=== PATIENT | female | born 1965 | race African-American/Black ===

== ENCOUNTER 2019-12-23 08:22 | Emergency (ER) | payer SELFPAY ==
[2019-12-23 08:28] VITALS: BP 147/63
--- NOTE | 2019-12-23 10:22 | Cat Scan Report ---
CT head without contrast INDICATION : Headache x 3 weeks, hx of CVA. TECHNIQUE: Axial imaging performed from the skull apex through the skull base without the use of con trast. All CT scans at this location are performed using CT dose reduction for ALARA by means of aut omated exposure control. COMPARISON: CT head from 11/02/2013 FINDINGS: Parenchyma: No acute intracranial hemorrhage or parenchymal abnormality. Ventricles: Ventricles are normal in size and appear symmetric. Soft tissues: Soft tissues including the orbits appear normal. Bones: No acute osseous abnormality. Sinuses: Sinuses and mastoid air cells are clear. IMPRESSION: No acute abnormality. Signer Name: Angel Alarcon MD Signed: 12/23/2019 10:18 AM Workstation Name: [id number]
[2019-12-23] MEDS ORDERED: KETOROLAC 30 MG/1 ML INJ IM ONE (12:22)
[2019-12-23] MEDS ORDERED: ONDANSETRON 4 MG ODT TAB PO ONE (12:23)
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
== END 2019-12-23 13:33 | disposition home or self-care (01) ==
LOC: ED 08:22
DX: G43.909 Migraine, unspecified, not intractable, without status migrainosus (principal); I10 Essential (primary) hypertension; E11.9 Type 2 diabetes mellitus without complications; Z86.73 Personal history of transient ischemic attack (TIA), and cerebral infarction without residual deficits; Z79.899 Other long term (current) drug therapy
CPT/HCPCS: 70450; 96372; 99283; J1885; Q0162

== ENCOUNTER 2021-11-04 09:04 | Emergency (ER) | payer SELFPAY ==
[2021-11-04 09:07] VITALS: BP 120/96
[2021-11-04] MEDS ORDERED: IBUPROFEN 800 MG TAB PO STA (10:49)
[2021-11-04] MEDS ORDERED: ACETAMINOPHEN 325 MG TAB PO ONE (10:49)
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
== END 2021-11-04 13:47 | disposition home or self-care (01) ==
LOC: ED 09:04
DX: M54.2 Cervicalgia (principal); M54.9 Dorsalgia, unspecified; I10 Essential (primary) hypertension; E11.9 Type 2 diabetes mellitus without complications; Z86.73 Personal history of transient ischemic attack (TIA), and cerebral infarction without residual deficits; V49.49XA Driver injured in collision with other motor vehicles in traffic accident, initial encounter; Y93.89 Activity, other specified; Y92.89 Other specified places as the place of occurrence of the external cause; Y99.8 Other external cause status
CPT/HCPCS: 72070; 72100; 72125; 99284

== ENCOUNTER 2022-05-20 17:18 | Emergency (ER) | payer OTHER ==
[2022-05-20] MEDS ORDERED: ONDANSETRON 4 MG/2 ML INJ IV ONE (18:18)
[2022-05-20] MEDS ORDERED: MORPHINE 2 MG/1 ML INJ IV ONE (18:18)
[2022-05-20] MEDS ORDERED: SODIUM CHLORIDE 0.9% 1000 ML 1,000 ML IV ONE ×2 (18:18→19:01)
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
--- NOTE | 2022-05-20 18:54 | XRay Report ---
Right knee 2 views INDICATION: Right knee pain IMPRESSION: No fracture of the right knee is identified. No dislocation. Signer Name: Bryan Valencia MD Signed: 05/20/2022 6:50 PM Workstation Name: [id number]
--- NOTE | 2022-05-20 18:54 | XRay Report ---
Right wrist 2 views INDICATION: Right wrist pain IMPRESSION: No fracture or subluxation is identified. Signer Name: Bryan Valencia MD Signed: 05/20/2022 6:49 PM Workstation Name: [id number]
[2022-05-20] MEDS ORDERED: INSULIN REGULAR, HUMAN 100 UNITS/1 ML IV ONE (19:01)
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
[2022-05-20 19:10] LABS: Alanine Aminotransferase 12 units/L (7-56); Albumin 4.2 g/dL (3.9-5); Blood Urea Nitrogen 17 mg/dL (7-17); Calcium 8.7 mg/dL (8.4-10.2); Hemolysis Index 8
[2022-05-20 19:13] LABS: BUN/Creatinine Ratio 28
[2022-05-20 19:18] LABS: Basophils % (Auto) 0.4 % (0.0-1.8); Eosinophils # (Auto) 0.1 K/mm3 (0.0-0.4); Eosinophils % (Auto) 1.2 % (0.0-4.3); Hematocrit 39.8 % (30.3-42.9); Hemoglobin 13.2 gm/dl (10.1-14.3); Lymphocytes # (Auto) 1.4 K/mm3 (1.2-5.4); Lymphocytes % (Auto) 14.3 % (13.4-35.0); Mean Corpuscular HGB Conc 33 % (30-34); Mean Corpuscular Volume 83 fl (79-97); Monocytes # (Auto) 0.5 K/mm3 (0.0-0.8); Monocytes % (Auto) 5.1 % (0.0-7.3); Platelet Count 238 K/mm3 (140-440)
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
[2022-05-20] MEDS ORDERED: FUROSEMIDE 20 MG TAB PO ONE (21:34)
[2022-05-20 23:01] VITALS: BP 130/68
--- NOTE | 2022-05-23 10:33 | Electrocardiograph Report ---
[facility] Test Date: 2022-05-20 Test Time: 21:46:45 Pat Name: JUAN FRANCISCO FARIAS Department: Room: Gender: F Radiologic Technologist: BERNARD : 1965 Requested By: JOSE CRUZ BARNEY Order Number: [id number] Reading MD: Augustin Luis Measurements Intervals Walker Rate: 66 P: 71 IL: 164 QRS: 73 QRSD: 81 T: 46 QT: 432 QTc: 454 Interpretive Statements Sinus rhythm Low voltage with right axis deviation No previous ECG available for comparison Electronically Signed On 05-23-2022 10:33:23 EDT by Augustin Luis
== END 2022-05-20 23:02 | disposition home or self-care (01) ==
LOC: ED 17:18
DX: S13.9XXA Sprain of joints and ligaments of unspecified parts of neck, initial encounter (principal); I10 Essential (primary) hypertension; V89.2XXA Person injured in unspecified motor-vehicle accident, traffic, initial encounter; Y93.89 Activity, other specified; Y92.89 Other specified places as the place of occurrence of the external cause; Y99.8 Other external cause status
CPT/HCPCS: 36415; 70450; 71260; 72125; 73030; 73100; 73560; 74177; 80053; 82550; 82962; 83690; 84484; 85025; 93005; 96361; 96374; 99285; J7030; Q9967; J1815